=== PATIENT | female | born 1970 | race Caucasian/White ===

== ENCOUNTER 2016-03-28 14:47 | Emergency (ER) | payer OTHER ==
[~2016-03-28] VITALS: Ht 162.6 cm; Wt 115.0 kg
[~2016-03-28 14:47] MED LIST: ACET1CAP2 PO; ASPI81TA28 PO; CETI10TA10 PO; ERYOPO1 OP; LSN20 PO; METF750T PO; MULTTAB58 PO; OMEP20CA9 PO; POLYSOL4 OP; PRZ/40 PO
[2016-03-28 14:54] VITALS: Ht 162.6 cm; Wt 115.0 kg
[2016-03-28] MEDS ORDERED: ERYOPO1 OP (15:03)
[2016-03-28] MEDS ORDERED: PHEN1PAK PO (15:04)
[2016-03-28] MEDS ORDERED: VITACAP26 PO (15:04)
[2016-03-28] MEDS ORDERED: KETOROLAC TROMETHAMINE 30 MG/ML VIAL IV STA (15:15)
[2016-03-28] MEDS ORDERED: ONDANSETRON INJ 2 MG/ML 2 ML VIAL IV STA (15:15)
[2016-03-28] MEDS ORDERED: SODIUM CHLORIDE 0.9% 1000ML 1,000 ML IV STA (15:15)
[2016-03-28 15:57] LABS: BASO % 0.3 %; BASO ABS # 0.02 K/uL (0-0.2); COMPLETE YES; EOS % 2.3 %; HEMATOCRIT 36.6 % (37-47); IG% 0.2 %; LYMPH % 16.7 %; LYMPH ABS # 1.08 K/uL (1.2-3.4); MEAN CELL VOLUME 89.7 fL (80-100); MEAN CORPUSCULAR HEMOGLOBIN 30.6 pg (25-34); MEAN CORPUSCULAR HGB CONC 34.2 g/dl (32-36); MEAN PLATELET VOLUME 9.9 fL (7.4-10.4); MONO % 10.5 %; PLATELET COUNT 147 K/uL (130-400); RED BLOOD COUNT 4.08 M/uL (4.2-5.4); WHITE BLOOD COUNT 6.46 K/uL (4.8-10.8)
[2016-03-28 16:18] LABS: CALCIUM 9.3 mg/dl (8.5-10.1); CREATININE 0.8 mg/dl (0.60-1.20)
[2016-03-28 16:21] LABS: ALB/GLOB RATIO 0.9 (0.9-2)
[2016-03-28 17:23] LABS: LYME DISEASE AB IGG NEG (NEG); LYME DISEASE AB IGM NEG (NEG)
--- NOTE | 2016-03-28 17:39 | EMERGENCY ROOM VISIT NOTE ---
History First contact with patient: 15:01 Chief Complaint: ILLNESS Stated Complaint: ILLNESS History of Present Illness The patient is a 45 year old female who presents to the Emergency Room with complaints of nausea, vomiting, diarrhea and body aches. The patient reports that she has had flulike illness for the past 3 days. Her symptoms have been progressively worsening. She states that she thought that initially were improving, but they worsened after work last night. She reports that she has felt feverish for the past 3 days, but has not taken her temperature. She has been taking DayQuil without relief. She reports that she has had multiple episodes of vomiting over the past few days, but only one episode of diarrhea today. She denies any headache, posterior neck pain/stiffness, chest pain, cough or shortness of breath. She denies abdominal pain. She denies urinary symptoms. Review of Systems A complete 10-point Review of Systems was discussed with the patient, with pertinent positives and negatives listed in the History of Present Illness. All remaining Review of Systems questions can be considered negative unless otherwise specified. Past Medical/Surgical History Medical Problems: (1) Anxiety State Nos (2) Depressive Disorder Nec (3) Diverticulosis Colon (W/O Ment Of Hemorrhage) (4) Esophageal Reflux (5) Fem Stress Incontinence (6) Hypertension Nos (7) MORBID OBESITY Surgical Problems: (1) section (2) Hysterectomy Social History Smoking Status: Former Smoker Alcohol Use: occasionally Marital Status: Occupation Status: employed Current/Historical Medications Scheduled Aspirin (Aspirin Ec), 81 MG PO HS Cetirizine Hcl (Zyrtec), 10 MG PO DAILY Fluoxetine Hcl (Prozac), 40 MG PO DAILY Lisinopril (Lisinopril), 20 MG PO DAILY Metformin Hcl (Glucophage Er), 750 MG PO DAILY Multiple Vitamin (Multivitamin), 1 TABLET PO DAILY Omeprazole (Prilosec), 20 MG PO DAILY Polyethylene Glycol-Propylene (Systane), 1 DROPS OP QID Vitamins C & E (Vitamin C), 1 CAP PO DAILY Scheduled PRN Erythromycin (Erythromycin), 1 APPLN OP TID PRN for PRN Fsvdszqnhcudm-[id number]-Qxdqh (Daytime/Nite Time Cold/Fl), 1 DOSE PO Q12 PRN for COLD AND FLU Allergies Coded Allergies: Atorvastatin (Verified Allergy, Unknown, MUSCLE SPASM, 03/28/16) Statins (Unverified Allergy, Unknown, MUSCLE SPASM, 03/28/16) Physical Exam Vital Signs Date Time Temp Pulse Resp B/P Pulse Ox O2 Delivery O2 Flow Rate FiO2 03/28/16 17:58 37.2 87 18 114/65 96 03/28/16 16:55 87 125/72 97 Room Air 03/28/16 14:54 37.3 95 18 132/71 97 Room Air Physical Exam VITALS: Vitals are noted on the nurse's note and reviewed by myself. Vital signs stable. GENERAL: This is a 45-year-old female, in no acute distress, nondiaphoretic, well-developed well-nourished. SKIN: Capillary reflex less than 2 seconds. HEENT: Normocephalic. PERRLA. EOMI. Nares patent. Mucous membranes moist. Neck is supple without nuchal rigidity. HEART: Regular rate and rhythm without murmurs gallops or rubs. LUNGS: Clear to auscultation bilaterally without wheezes, rales or rhonchi. No retractions or accessory muscle use. ABDOMEN: Positive bowel sounds x 4. Soft, nontender to palpation. NEURO: Patient was alert and oriented to person place and time. Medical Decision & Procedures Laboratory Results 03/28/16 15:45 Red Blood Count 4.08, Mean Corpuscular Volume 89.7, Mean Corpuscular Hemoglobin 30.6, Mean Corpuscular Hemoglobin Concent 34.2, Mean Platelet Volume 9.9, Neutrophils (%) (Auto) 70.0, Lymphocytes (%) (Auto) 16.7, Monocytes (%) (Auto) 10.5, Eosinophils (%) (Auto) 2.3, Basophils (%) (Auto) 0.3, Neutrophils # (Auto ) 4.52, Lymphocytes # (Auto) 1.08, Monocytes # (Auto) 0.68, Eosinophils # (Auto ) 0.15, Basophils # (Auto) 0.02 03/28/16 15:45 Test 03/28/16 15:45 03/28/16 16:00 White Blood Count 6.46 K/uL (4.8-10.8) Red Blood Count 4.08 M/uL (4.2-5.4) Hemoglobin 12.5 g/dL (12.0-16.0) Hematocrit 36.6 % (37-47) Mean Corpuscular Volume 89.7 fL (80-100) Mean Corpuscular Hemoglobin 30.6 pg (25-34) Mean Corpuscular Hemoglobin Concent 34.2 g/dl (32-36) Platelet Count 147 K/uL (130-400) Mean Platelet Volume 9.9 fL (7.4-10.4) Neutrophils (%) (Auto) 70.0 % Lymphocytes (%) (Auto) 16.7 % Monocytes (%) (Auto) 10.5 % Eosinophils (%) (Auto) 2.3 % Basophils (%) (Auto) 0.3 % Neutrophils # (Auto) 4.52 K/uL (1.4-6.5) Lymphocytes # (Auto) 1.08 K/uL (1.2-3.4) Monocytes # (Auto) 0.68 K/uL (0.11-0.59) Eosinophils # (Auto) 0.15 K/uL (0-0.5) Basophils # (Auto) 0.02 K/uL (0-0.2) RDW Standard Deviation 43.8 fL (36.4-46.3) RDW Coefficient of Variation 13.3 % (11.5-14.5) Immature Granulocyte % (Auto) 0.2 % Immature Granulocyte # (Auto) 0.01 K/uL (0.00-0.02) Anion Gap 10.0 mmol/L (3-11) Est Creatinine Clear Calc Drug Dose 108.2 ml/min Estimated GFR () 101.8 Estimated GFR (Non- 87.8 BUN/Creatinine Ratio 14.0 (10-20) Calcium Level 9.3 mg/dl (8.5-10.1) Total Bilirubin 0.8 mg/dl (0.2-1) Aspartate Amino Transf (AST/SGOT) 65 U/L (15-37) Alanine Aminotransferase (ALT/SGPT) 128 U/L (12-78) Alkaline Phosphatase 113 U/L (45-117) Total Protein 7.9 gm/dl (6.4-8.2) Albumin 3.8 gm/dl (3.4-5.0) Globulin 4.1 gm/dl (2.5-4.0) Albumin/Globulin Ratio 0.9 (0.9-2) Lyme Disease IgG Antibody NEG (NEG) Lyme Disease IgM Antibody NEG (NEG) Monoscreen NEG (NEG) Influenza Type A Antigen Neg for Influ A (NEG) Influenza Type B Antigen Neg for Influ B (NEG) Medications Administered Medications (Trade) Dose Ordered Sig/Helen Route Start Time Stop Time Status Last Admin Dose Admin Sodium Chloride (Nss 1000ml) 1,000 ml @ 999 mls/hr Q1H1M STAT IV 03/28/16 15:15 03/28/16 16:15 DC 03/28/16 15:15 999 MLS/HR Ketorolac Tromethamine (Toradol Inj) 30 mg NOW STAT IV 03/28/16 15:15 03/28/16 15:20 DC 03/28/16 15:53 30 MG Ondansetron HCl (Zofran Inj) 4 mg NOW STAT IV 03/28/16 15:15 03/28/16 15:20 DC 03/28/16 15:53 4 MG Medical Decision Differential diagnosis includes influenza, pneumonia, mononucleosis, Lyme disease, meningitis, encephalitis, upper respiratory infection, viral syndrome, among others. The patient was evaluated as above. Labs were drawn and IV access was obtained. Imaging studies were performed and read by radiology as above. The patient was medicated with 1 L normal saline solution, 30 mg Toradol and 4 mg Zofran. The patient was reassessed multiple times during their stay in the emergency department and remained in stable condition. The patient is a 45-year-old female who presents today complaining of flulike illness. Labs revealed no leukocytosis, anemia or concerning electrolyte abnormalities. LFTs were mildly elevated and the clinical significance of this is unclear. The patient was informed and will follow-up with her primary care provider for recheck. Influenza, mono and Lyme testing were all negative. The patient likely has a viral illness. She was informed of all findings and conservative measures were discussed. She will return for any worsening symptoms. Based on the patient's presentation, lab results, and imaging studies, I feel the patient is stable for outpatient treatment. Discharge instructions were reviewed with the patient. The patient verbalized understanding of my assessment and treatment plan and was discharged home in good condition. Impression Primary Impression: Flu-like symptoms Departure Information Dispostion Home / Self-Care Condition GOOD Referrals Johnathon Caceres M.D. (PCP) Patient Instructions My [facility] Additional Instructions For pain control, you can use the following [id number] medicines (if >12 yo): - Regular strength (325mg/tab) Tylenol (acetaminophen) 2 tabs every 4-6 hours as needed. Do not exceed 12 tablets in a 24 hour period. Avoid taking more than 4 grams (4000 mg) of Tylenol per day. This includes any other sources of acetaminophen you may take on a regular basis. - Regular strength (200 mg/tab) Advil (ibuprofen) 1-2 tabs every 4-6 hours as needed. Do not exceed a dose of 3200 mg per day. REST and drink plenty of fluids for the next 2-3 days. Return to the emergency department with any new/worsening symptoms.
[2016-03-28 17:58] VITALS: BP 114/65; PULSE 87; TEMP 37.2; O2SAT 96
== END 2016-03-28 17:59 | disposition home or self-care (01) ==
LOC: EDBD 14:47 → C.EDD 14:48
DX: R11.2 Nausea with vomiting, unspecified (principal); R19.7 Diarrhea, unspecified; F41.9 Anxiety disorder, unspecified; F32.9 Major depressive disorder, single episode, unspecified; K21.9 Gastro-esophageal reflux disease without esophagitis; I10 Essential (primary) hypertension; E66.01 Morbid (severe) obesity due to excess calories; Z90.710 Acquired absence of both cervix and uterus; Z87.891 Personal history of nicotine dependence; Z79.82 Long term (current) use of aspirin; Z79.899 Other long term (current) drug therapy

== ENCOUNTER 2016-04-30 10:33 | Emergency (ER) | payer OTHER ==
[~2016-04-30 10:33] MED LIST changes: -ACET1CAP2 PO; +PHEN1PAK PO; +VITACAP26 PO
[2016-04-30 10:41] VITALS: TEMP 36.6; Ht 160 cm
[2016-04-30] MEDS ORDERED: OXYC-57 PO (11:40)
--- NOTE | 2016-04-30 11:42 | DIAGNOSTIC IMAGING REPORT ---
LEFT SHOULDER MIN 2 VIEWS ROUTINE CLINICAL HISTORY: Left shoulder pain status post trauma COMPARISON: None. DISCUSSION: No fractures or dislocations are visualized. IMPRESSION: No fractures or dislocations identified. Electronically signed by: Danilo Morales M.D. 04/30/2016 11:41 AM Dictated Date/Time: 04/30/2016 11:41 AM
--- NOTE | 2016-04-30 11:43 | DIAGNOSTIC IMAGING REPORT ---
LEFT ELBOW MIN 3 VIEWS ROUTINE CLINICAL HISTORY: fall, left elbow pain trauma. Pain. COMPARISON: None. DISCUSSION: The bones and joint spaces appear intact. There is no evidence of fracture, dislocation or bony disease. There is no evidence for soft tissue swelling. IMPRESSION: Negative study. Electronically signed by: Marlon Landon M.D. 04/30/2016 11:41 AM Dictated Date/Time: 04/30/2016 11:41 AM
--- NOTE | 2016-04-30 11:43 | DIAGNOSTIC IMAGING REPORT ---
LEFT FOOT MIN 3 VIEWS ROUTINE CLINICAL HISTORY: fall, left foot pain TRAUMA COMPARISON: None. DISCUSSION: No fractures or dislocations are visualized. There is a plantar calcaneal spur. There is dorsal soft tissue swelling. IMPRESSION: No acute fractures identified. Electronically signed by: Danilo Morales M.D. 04/30/2016 11:42 AM Dictated Date/Time: 04/30/2016 11:41 AM
--- NOTE | 2016-04-30 11:44 | DIAGNOSTIC IMAGING REPORT ---
LEFT FOREARM 2 VIEWS ROUTINE CLINICAL HISTORY: fall, left arm pain trauma. Pain. COMPARISON: None. DISCUSSION: Transverse fracture distal radius. Probable cortical fracture of ulnar styloid. Remainder the forearm is unremarkable. Mild soft tissue edema is present. IMPRESSION: Transverse fracture distal radius. Probable cortical fracture on the styloid. Moderate soft tissue edema. Electronically signed by: Marlon Landon M.D. 04/30/2016 11:43 AM Dictated Date/Time: 04/30/2016 11:42 AM
--- NOTE | 2016-04-30 11:51 | DIAGNOSTIC IMAGING REPORT ---
LEFT HAND MIN 3 VIEWS ROUTINE CLINICAL HISTORY: fall, left hand pain trauma COMPARISON: None. DISCUSSION: Transverse partially comminuted fracture distal radius. Fracture extends to the articular surface. Maximum bony distraction at the articular services 2 mm. There is a very slight dorsal angulation. There is no evidence of dislocation. Generalized soft tissue edema IMPRESSION: Transverse comminuted fracture distal radius with focal extension to the articular surface Electronically signed by: Marlon Landon M.D. 04/30/2016 11:50 AM Dictated Date/Time: 04/30/2016 11:48 AM
--- NOTE | 2016-04-30 11:52 | DIAGNOSTIC IMAGING REPORT ---
LEFT TIBIA/FIBULA 2 VIEWS ROUTINE CLINICAL HISTORY: fall, left leg pain trauma. Pain. COMPARISON: None. DISCUSSION: The bones and joint spaces appear intact. There is no evidence of fracture, dislocation or bony disease. There is no evidence for soft tissue swelling. IMPRESSION: Negative study. Electronically signed by: Marlon Landon M.D. 04/30/2016 11:51 AM Dictated Date/Time: 04/30/2016 11:51 AM
[2016-04-30] MEDS ORDERED: OXYCODONE HCL IR 5 MG TAB (IMMEDIATE RELEASE) PO STA (12:06)
[2016-04-30] MEDS ORDERED: OXYC1TAB3 PO (12:19)
--- NOTE | 2016-04-30 12:20 | EMERGENCY ROOM VISIT NOTE ---
History First contact with patient: 10:45 Chief Complaint: FALL Stated Complaint: ARM AND LEG PAIN History of Present Illness The patient is a 45 year old female who presents to the Emergency Room with complaints of fall. The patient states that she was on vacation in [place] and fell 3 days ago. She was seen in the hospital there and diagnosed with a distal ulna and distal radius fracture. She had been placed in a splint. She is taking Percocet. The patient states she has also had pain in the left leg, left shoulder and left arm. She has an appointment scheduled with orthopedics tomorrow. She rates her discomfort a 3/10. She denies any headache, nausea, vomiting, trouble focusing or blurry vision. Review of Systems A 10 system review of systems was completed with positives and pertinent negatives listed in the HPI. Past Medical/Surgical History Medical Problems: (1) Anxiety State Nos (2) Depressive Disorder Nec (3) Diverticulosis Colon (W/O Ment Of Hemorrhage) (4) Esophageal Reflux (5) Fem Stress Incontinence (6) Hypertension Nos (7) MORBID OBESITY Surgical Problems: (1) section (2) Hysterectomy Social History Smoking Status: Former Smoker Alcohol Use: occasionally Marital Status: Occupation Status: employed Current/Historical Medications Scheduled Aspirin (Aspirin Ec), 81 MG PO HS Cetirizine Hcl (Zyrtec), 10 MG PO DAILY Fluoxetine Hcl (Prozac), 40 MG PO DAILY Lisinopril (Lisinopril), 20 MG PO DAILY Metformin Hcl (Glucophage Er), 750 MG PO DAILY Multiple Vitamin (Multivitamin), 1 TABLET PO DAILY Omeprazole (Prilosec), 20 MG PO DAILY Polyethylene Glycol-Propylene (Systane), 1 DROPS OP QID Vitamins C & E (Vitamin C), 1 CAP PO DAILY Scheduled PRN Erythromycin (Erythromycin), 1 APPLN OP TID PRN for PRN Oxycodone Ir (Roxicodone Ir), 1-2 TAB PO Q4H PRN for Pain Oxycodone/Acetaminophen 5MG/325MG (Percocet 5MG/325MG), 2 TABLETS PO Q6H PRN for Pain Allergies Coded Allergies: Atorvastatin (Verified Allergy, Unknown, MUSCLE SPASM, 03/28/16) Statins (Unverified Allergy, Unknown, MUSCLE SPASM, 03/28/16) Physical Exam Vital Signs Date Time Temp Pulse Resp B/P Pulse Ox O2 Delivery O2 Flow Rate FiO2 04/30/16 12:44 66 20 138/76 98 04/30/16 12:19 66 20 138/76 98 Room Air 04/30/16 10:41 36.6 75 16 168/96 97 Room Air Physical Exam VITALS: Vitals are noted on the nurse's note and reviewed by myself. Vital signs stable. GENERAL: This is a 45-year-old female, in no acute distress, nondiaphoretic, well-developed well-nourished. SKIN: There is ecchymosis and edema to the left wrist. g of the skin. Capillary reflex less than 2 seconds. HEAD: Normocephalic atraumatic. EARS: External auditory canals clear, tympanic membranes pearly rangel without erythema or effusion bilaterally. No morel sign. No mastoid tenderness. EYES: Pupils equal round and reactive to light and accommodation. Conjunctivae without injection, sclerae without icterus. Extraocular movements intact. NOSE: Patent, turbinates without inflammation or discharge. No sinus tenderness. No septal hematoma or bleeding. FACE: No facial tenderness. Full range of motion of the jaw without tenderness. MOUTH: Mucous membranes moist. Pharynx without erythema or exudate. Uvula midline. Airway patent. Tongue does not deviate. NECK: Supple without nuchal rigidity. Cervical spine is nontender. Full range of motion of the neck without tenderness. No JVD. HEART: Regular rate and rhythm without murmurs gallops or rubs. LUNGS: Clear to auscultation bilaterally without wheezes, rales or rhonchi. No retractions or accessory muscle use. No chest tenderness. MUSCULOSKELETAL: There is ecchymosis, edema and tenderness to the left wrist. There is tenderness to the left shoulder and left elbow. There is tenderness to the left hand. Radial and ulnar pulses are 2+ in the left upper extremity. There is no tenderness or palpable cord or swelling to the left calf. There is swelling and tenderness over the left fourth and fifth metatarsals. NEURO: Patient was alert and oriented to person place and time. Normal Mini- Mental status exam. Normal sensation to light and sharp touch. Negative Romberg and pronator drift. Cerebellar function intact. No focal neurological deficits. Medical Decision & Procedures ER Provider Diagnostic Interpretation: [~ rep ct add3]] LEFT ELBOW MIN 3 VIEWS ROUTINE CLINICAL HISTORY: fall, left elbow pain trauma. Pain. COMPARISON: None. DISCUSSION: The bones and joint spaces appear intact. There is no evidence of fracture, dislocation or bony disease. There is no evidence for soft tissue swelling. IMPRESSION: Negative study. LEFT FOOT MIN 3 VIEWS ROUTINE CLINICAL HISTORY: fall, left foot pain TRAUMA COMPARISON: None. DISCUSSION: No fractures or dislocations are visualized. There is a plantar calcaneal spur. There is dorsal soft tissue swelling. IMPRESSION: No acute fractures identified. LEFT FOREARM 2 VIEWS ROUTINE CLINICAL HISTORY: fall, left arm pain trauma. Pain. COMPARISON: None. DISCUSSION: Transverse fracture distal radius. Probable cortical fracture of ulnar styloid. Remainder the forearm is unremarkable. Mild soft tissue edema is present. IMPRESSION: Transverse fracture distal radius. Probable cortical fracture on the styloid. Moderate soft tissue edema. LEFT HAND MIN 3 VIEWS ROUTINE CLINICAL HISTORY: fall, left hand pain trauma COMPARISON: None. DISCUSSION: Transverse partially comminuted fracture distal radius. Fracture extends to the articular surface. Maximum bony distraction at the articular services 2 mm. There is a very slight dorsal angulation. There is no evidence of dislocation. Generalized soft tissue edema IMPRESSION: Transverse comminuted fracture distal radius with focal extension to the articular surface LEFT SHOULDER MIN 2 VIEWS ROUTINE CLINICAL HISTORY: Left shoulder pain status post trauma COMPARISON: None. DISCUSSION: No fractures or dislocations are visualized. IMPRESSION: No fractures or dislocations identified. LEFT TIBIA/FIBULA 2 VIEWS ROUTINE CLINICAL HISTORY: fall, left leg pain trauma. Pain. COMPARISON: None. DISCUSSION: The bones and joint spaces appear intact. There is no evidence of fracture, dislocation or bony disease. There is no evidence for soft tissue swelling. IMPRESSION: Negative study. Medications Administered Medications (Trade) Dose Ordered Sig/Helen Route Start Time Stop Time Status Last Admin Dose Admin Oxycodone HCl (Roxicodone Immediate Rel Tab) 10 mg NOW STAT PO 04/30/16 12:06 04/30/16 12:09 DC 04/30/16 12:14 10 MG ED Course The patient was seen and examined. Previous visits were reviewed. The patient had a mechanical fall several days ago. X-rays were obtained as above. The patient was placed in a new splint, a sugar tong Ortho-Glass splint by the emergency department electronics technician apprentice and the position was satisfactory. Neurovascular status was intact. She was given a sling. She was placed in a postop shoe for the left foot. She was given 10 mg Percocet. She was given a prescription. She has an appointment with orthopedics tomorrow. She will return to the ER with any worsening symptoms. Medical Decision The differential diagnosis includes contusion, fracture, sprain, strain, among others [place] Drug Monitoring Program Search Results: patient reviewed within database, no issues identified Impression Primary Impression: Distal radius fracture, left Additional Impressions: Fall Multiple contusions Departure Information Dispostion Home / Self-Care Condition GOOD Prescriptions Oxycodone Ir (Roxicodone Ir) 5 Mg Tab 1-2 TAB PO Q4H Y for Pain, #36 TAB For Initial Treatment Prov: Emily Meyers PA-C 04/30/16 Referrals Johnathon Caceres M.D. (PCP) Benito Tovar M.D. Patient Instructions My [facility] Additional Instructions Follow up with orthopedics tomorrow as scheduled Return with worsening symptoms Oxy IR 1-2 tablets every 4-6 hrs as needed for worse pain. No driving or alcohol use with Oxy IR. Wear the splint until seen by orthopedics. Do not get the splint wet. Work Instructions Return To Work: 3 days Problem Qualifiers Primary Impression: Distal radius fracture, left Encounter type: initial encounter Fracture type: closed Additional Impressions: Fall Encounter type: initial encounter Qualified Codes: W19.XXXA - Unspecified fall, initial encounter
[2016-04-30 12:44] VITALS: BP 138/76; PULSE 66; O2SAT 98
== END 2016-04-30 12:45 | disposition home or self-care (01) ==
LOC: C.EDB 10:34 → EEVIPCON 10:34 → C.EDC 12:45
DX: S52.592A Other fractures of lower end of left radius, initial encounter for closed fracture (principal); T14.8 Other injury of unspecified body region; M79.605 Pain in left leg; M25.512 Pain in left shoulder; I10 Essential (primary) hypertension; F32.9 Major depressive disorder, single episode, unspecified; Z79.899 Other long term (current) drug therapy; Z79.82 Long term (current) use of aspirin; Z87.891 Personal history of nicotine dependence; W19.XXXA Unspecified fall, initial encounter; Y99.8 Other external cause status

== ENCOUNTER → 2016-05-08 | Outpatient (CLI) | payer OTHER ==
[~2016-05-08] MED LIST changes: +CLR10 PO; +DIET PILL PO; +KETO10TA PO; +OXYC-57 PO; +OXYC1TAB3 PO; -PHEN1PAK PO; +RANI150T3 PO
--- NOTE | 2016-05-08 10:51 | DIAGNOSTIC IMAGING REPORT ---
LEFT WRIST MIN 3 VIEWS ROUTINE CLINICAL HISTORY: LEFT WRIST PAIN fracture COMPARISON: 04/30/2016 DISCUSSION: Comminuted fracture distal radius is again noted. Distraction of the fracture component extending to the radial articular surface is somewhat increased. It has increased from 2 to 4 mm. Nondisplaced fracture ulnar styloid is noted. No evidence of dislocation. Mild soft tissue edema IMPRESSION: 1. Comminuted fracture distal radius with extension to the articular services. 2. Distraction at the level of the articular services has increased from the prior study from 2 to 4 mm. 3. Study is otherwise unchanged Electronically signed by: Marlon Landon M.D. 05/08/2016 10:49 AM Dictated Date/Time: 05/08/2016 10:47 AM
== END | disposition home or self-care (01) ==
LOC: C.RDSM 14:59
PROVIDERS: ATTEND Physical Medicine & Rehabilitation Sports Medicine
DX: S52.502A Unspecified fracture of the lower end of left radius, initial encounter for closed fracture (principal); X58.XXXA Exposure to other specified factors, initial encounter

== ENCOUNTER → 2016-05-19 | Outpatient (CLI) | payer OTHER | END | disposition home or self-care (01) | LOC: C.RDSM 13:58 | PROVIDERS: ATTEND Physical Medicine & Rehabilitation Sports Medicine | DX: S52.512A Displaced fracture of left radial styloid process, initial encounter for closed fracture (principal); X58.XXXA Exposure to other specified factors, initial encounter ==

== ENCOUNTER → 2016-05-19 | Outpatient (CLI) | payer OTHER ==
[2016-05-19 11:23] LABS: ALT/SGPT 151 U/L (12-78); AST/SGOT 69 U/L (15-37); BLOOD UREA NITROGEN 13 mg/dl (7-18); CALCIUM 10.1 mg/dl (8.5-10.1); CARBON DIOXIDE 25 mmol/L (21-32); CHLORIDE 101 mmol/L (98-107); CHOLESTEROL 291 mg/dl (0-200); CREATININE 0.57 mg/dl (0.60-1.20); GLUCOSE 118 mg/dl (70-99); POTASSIUM 4.2 mmol/L (3.5-5.1); SODIUM 136 mmol/L (136-145); TRIGLYCERIDES 355 mg/dl (0-150); VERY LOW DENSITY LIPOPROT CALC 71 mg/dl
[2016-05-19 11:27] LABS: ALKALINE PHOSPHATASE 118 U/L (45-117); CHOLESTEROL/HDL RATIO 8.3; HDL CHOLESTEROL 35 mg/dl; LDL CHOLESTEROL CALCULATED 185 mg/dl
[2016-05-19 11:44] LABS: ESTIMATED AVERAGE GLUCOSE 117 mg/dl; HA1C FLAG Normal (Normal)
== END | disposition home or self-care (01) ==
LOC: C.LAB 09:52
PROVIDERS: ATTEND Internal Medicine
DX: E78.5 Hyperlipidemia, unspecified (principal); I10 Essential (primary) hypertension; E66.01 Morbid (severe) obesity due to excess calories

== ENCOUNTER → 2016-05-26 | Outpatient (CLI) | payer OTHER | END | disposition home or self-care (01) | LOC: C.RDSM 14:54 | PROVIDERS: ATTEND Physical Medicine & Rehabilitation Sports Medicine | DX: Z09 Encounter for follow-up examination after completed treatment for conditions other than malignant neoplasm (principal) ==

== ENCOUNTER → 2016-06-09 | Outpatient (CLI) | payer OTHER ==
[~2016-06-09] MED LIST changes: +PHEN37.585 PO
== END | disposition home or self-care (01) ==
LOC: C.RDSM 12:22
PROVIDERS: ATTEND Physical Medicine & Rehabilitation Sports Medicine
DX: S52.512D Displaced fracture of left radial styloid process, subsequent encounter for closed fracture with routine healing (principal); X58.XXXD Exposure to other specified factors, subsequent encounter

== ENCOUNTER → 2016-06-23 | Outpatient (CLI) | payer OTHER | END | disposition home or self-care (01) | LOC: C.RDSM 08:00 | PROVIDERS: ATTEND Physical Medicine & Rehabilitation Sports Medicine | DX: S52.512D Displaced fracture of left radial styloid process, subsequent encounter for closed fracture with routine healing (principal); X58.XXXA Exposure to other specified factors, initial encounter ==

== ENCOUNTER → 2016-11-25 | Outpatient (CLI) | payer OTHER ==
[~2016-11-25] MED LIST changes: -OXYC1TAB3 PO; -PHEN37.585 PO
[2016-11-27 02:02] LABS: CHLAMYDIA TRACH RNA*** NOT DETECTED (NOT DETECTED); GC (NEIS GONORRHOEAE)RNA** NOT DETECTED (NOT DETECTED)
== END | disposition home or self-care (01) ==
LOC: C.LABSPEC 11:02
PROVIDERS: ATTEND Obstetrics & Gynecology
DX: Z11.3 Encounter for screening for infections with a predominantly sexual mode of transmission (principal)

== ENCOUNTER 2016-11-27 13:43 | Emergency (ER) | payer OTHER ==
[~2016-11-27 13:43] MED LIST changes: -CLR10 PO; -DIET PILL PO; -KETO10TA PO; -RANI150T3 PO
[2016-11-27] MEDS ORDERED: ONDANSETRON INJ 2 MG/ML 2 ML VIAL IV STA (13:59)
[2016-11-27] MEDS ORDERED: KETOROLAC TROMETHAMINE 30 MG/ML VIAL IV STA (13:59)
[2016-11-27] MEDS ORDERED: SODIUM CHLORIDE 0.9% 1000ML 1,000 ML IV STA (13:59)
[2016-11-27 14:16] LABS: BASO % 0.5 %; BASO ABS # 0.04 K/uL (0-0.2); COMPLETE YES; EOS % 1.2 %; IG% 0.1 %; LYMPH ABS # 2.05 K/uL (1.2-3.4); MEAN CELL VOLUME 89.5 fL (80-100); MEAN CORPUSCULAR HEMOGLOBIN 30.9 pg (25-34); MEAN CORPUSCULAR HGB CONC 34.5 g/dl (32-36); MEAN PLATELET VOLUME 10.4 fL (7.4-10.4); MONO % 4.9 %; NEUT % 68.3 %; PLATELET COUNT 262 K/uL (130-400); RED BLOOD COUNT 4.47 M/uL (4.2-5.4)
[2016-11-27 14:27] LABS: MANUAL MICROSCOPIC REQUIRED? NO; REVIEW REQ? NO; URINE APPEARANCE CLEAR (CLEAR); URINE BILIRUBIN NEG (NEG); URINE COLOR YELLOW; URINE EPITHELIAL CELL AUTO >30 /lpf (0-5); URINE NITRITE NEG (NEG); URINE SPECIFIC GRAVITY 1.013 (1.000-1.030); UROBILINOGEN NEG (NEG)
[2016-11-27 14:34] LABS: ALT/SGPT 33 U/L (12-78); BLOOD UREA NITROGEN 7 mg/dl (7-18); BUN/CREATININE RATIO 11.3 (10-20); CALCIUM 9.7 mg/dl (8.5-10.1); CARBON DIOXIDE 24 mmol/L (21-32); CHLORIDE 104 mmol/L (98-107); CREATININE 0.63 mg/dl (0.60-1.20); GLUCOSE 94 mg/dl (70-99); POTASSIUM 3.8 mmol/L (3.5-5.1); SODIUM 137 mmol/L (136-145)
[2016-11-27 14:37] LABS: ALKALINE PHOSPHATASE 81 U/L (45-117); AST/SGOT 22 U/L (15-37)
[2016-11-27] MEDS ORDERED: CLR10 PO (14:51)
[2016-11-27] MEDS ORDERED: RANI150T3 PO (14:51)
[2016-11-27] MEDS ORDERED: DIET PILL PO (14:53)
--- NOTE | 2016-11-27 15:27 | DIAGNOSTIC IMAGING REPORT ---
ABD/PELVIS WITHOUT FOR STONE CT DOSE: 1045.48 mGycm HISTORY: Flank pain EVALUATE FLANK PAIN/HEMATURIA TECHNIQUE: Multiaxial CT images of the abdomen and pelvis were performed without the use of intravenous and oral contrast according to the standard department stone protocol. A dose lowering technique was utilized adhering to the principles of ALARA. COMPARISON STUDY: 10/31/2014 FINDINGS: The lung bases are clear. The unenhanced liver, gallbladder, spleen, pancreas, and adrenal glands are unremarkable. No renal stones or hydronephrosis. No bowel wall thickening or obstruction. Examination of the pelvis of the presence of a 2.5 cm left ovarian cyst. This is diminished in prominence in the prior study. Several associated left ovarian calcification suggesting a potential dermoid. No evidence for right ovarian enlargement. Pelvic bowel pattern is nonobstructive. The appendix is considered normal. Bowel pattern again is nonobstructive. IMPRESSION: 1. No acute process of the urinary tracts. 2. Potential 2.5 cm left ovarian dermoid versus complex cyst. 3. Otherwise negative study abdomen and pelvis. The above report was generated using voice recognition software. It may contain grammatical, syntax or spelling errors. Electronically signed by: Marlon Landon M.D. 11/27/2016 3:25 PM Dictated Date/Time: 11/27/2016 3:21 PM
[2016-11-27 15:37] VITALS: BP 142/89; PULSE 80; TEMP 36.7; O2SAT 97
[2016-11-27] MEDS ORDERED: KETO10TA PO (15:53)
--- NOTE | 2016-11-27 22:45 | EMERGENCY ROOM VISIT NOTE ---
ED Visit Note First contact with patient: 13:50 Chief Complaint: Right flank and right lower abdominal pain History of Present Illness: Ms. Harris is a 45 year-old white female who ambulates into the ED complaining of right flank pain and right lower quadrant abdominal pain. Historically patient reports status post partial hysterectomy Patient reports a acute onset of right flank pain that started approximately 12 hours ago. Since that time the pain has been constant but has gradually decreased in intensity. The pain is currently described as stabbing and cramping. The pain is radiating around the abdomen and into the right lower quadrant. She rates her discomfort /10. He has not identified any aggravating or alleviating factors related to the pain. She reports she has not taken any medications for pain prior to arrival at the hospital. Associated with her pain she's been nauseated but she has not vomited. Patient denies fevers, chills, sweats, skin eruptions, skin color changes, upper respiratory tract symptoms, shortness of breath, chest pain, diarrhea, constipation, rectal bleeding, black/tarry stools, urinary symptoms, hematuria, vaginal bleeding, vaginal discharge. Review of Systems: As noted above in history of present illness. All body systems were reviewed and found to be negative as noted above. Past Medical History: Hypertension, bronchitis, unspecified ulcers, headaches, anxiety, depression, diverticulosis, esophageal reflex status post section 2 and hysterectomy. Current Medications: Zantac, Claritin, lisinopril, Zyrtec. Allergies to Medications: Statins. Social History: Patient is currently employed; she feels safe in her home environment; she denies tobacco use; she admits to alcohol use Physical Examination: Vital Signs: Date Time Temp Pulse Resp B/P (MAP) Pulse Ox O2 Delivery O2 Flow Rate FiO2 11/27/16 15:37 36.7 80 18 142/89 97 11/27/16 13:47 36.7 109 20 142/89 97 Room Air GENERAL: 45-year-old female in mild to moderate distress due to pain, nontoxic- appearing, afebrile and hemodynamically stable. NEUROLOGICAL: Awake, alert and oriented to person, place and time. Answering questions appropriately and following commands. Normal gait. Good hand eye coordination. SKIN: Warm, dry and pink. No soft tissue eruptions or trauma noted. HEENT: Atraumatic and normocephalic. PERRLA. Sclera white and conjunctiva pink. Oral cavity moist and pink. Pharynx is nonerythematous or edematous. Speech normal. No lymphadenopathy. Trachea midline. No jugular venous distention. BACK: No tenderness over the bony spine. Mild right sided CVA tenderness. THORAX: Lungs sounds are clear to auscultation and equal bilaterally with symmetrical chest wall. No wheezing, rales or rhonchi. No crepitus, tenderness , subcutaneous air or deformities noted. HEART: Regular rate and rhythm. No gallops, rubs or murmurs are appreciated. ABDOMEN: Soft with mild tenderness in the right lower quadrant superior to McBurney's point. Positive bowel sounds in all quadrants. No guarding, rigidity or organomegaly. EXTREMITIES: Moves all extremities well on command and with purpose. All distal neurovascular statuses are intact and equal bilaterally. ED Course: Patient is assessed as noted above. Patient's medication list was reviewed. Laboratory Testing: Test 11/27/16 13:50 11/27/16 14:05 Range/Units Urine Color YELLOW Urine Appearance CLEAR CLEAR Urine pH 6.0 4.5-7.5 Urine Specific [place] 1.013 1.000-1.030 Urine Protein NEG NEG Urine Glucose (UA) NEG NEG Urine Ketones NEG NEG Urine Occult Blood NEG NEG Urine Nitrite NEG NEG Urine Bilirubin NEG NEG Urine Urobilinogen NEG NEG Urine Leukocyte Esterase TRACE NEG Urine WBC (Auto) 1-5 0-5 /hpf Urine RBC (Auto) 0-4 0-4 /hpf Urine Hyaline Casts (Auto) 1-5 0-5 /lpf Urine Epithelial Cells (Auto) >30 0-5 /lpf Urine Bacteria (Auto) 1+ NEG White Blood Count 8.20 4.8-10.8 K/uL Red Blood Count 4.47 4.2-5.4 M/uL Hemoglobin 13.8 12.0-16.0 g/dL Hematocrit 40.0 37-47 % Mean Corpuscular Volume 89.5 80-100 fL Mean Corpuscular Hemoglobin 30.9 25-34 pg Mean Corpuscular Hemoglobin Concent 34.5 32-36 g/dl Platelet Count 262 130-400 K/uL Mean Platelet Volume 10.4 7.4-10.4 fL Neutrophils (%) (Auto) 68.3 % Lymphocytes (%) (Auto) 25.0 % Monocytes (%) (Auto) 4.9 % Eosinophils (%) (Auto) 1.2 % Basophils (%) (Auto) 0.5 % Neutrophils # (Auto) 5.60 1.4-6.5 K/uL Lymphocytes # (Auto) 2.05 1.2-3.4 K/uL Monocytes # (Auto) 0.40 0.11-0.59 K/uL Eosinophils # (Auto) 0.10 0-0.5 K/uL Basophils # (Auto) 0.04 0-0.2 K/uL RDW Standard Deviation 41.9 36.4-46.3 fL RDW Coefficient of Variation 12.9 11.5-14.5 % Immature Granulocyte % (Auto) 0.1 % Immature Granulocyte # (Auto) 0.01 0.00-0.02 K/uL Sodium Level 137 136-145 mmol/L Potassium Level 3.8 3.5-5.1 mmol/L Chloride Level 104 98-107 mmol/L Carbon Dioxide Level 24 21-32 mmol/L Anion Gap 9.0 3-11 mmol/L Blood Urea Nitrogen 7 7-18 mg/dl Creatinine 0.63 0.60-1.20 mg/dl Estimated GFR () 123.8 Estimated GFR (Non- 106.8 BUN/Creatinine Ratio 11.3 10-20 Random Glucose 94 70-99 mg/dl Calcium Level 9.7 8.5-10.1 mg/dl Total Bilirubin 0.5 0.2-1 mg/dl Direct Bilirubin 0.2 0-0.2 mg/dl Aspartate Amino Transf (AST/SGOT) 22 15-37 U/L Alanine Aminotransferase (ALT/SGPT) 33 12-78 U/L Alkaline Phosphatase 81 45-117 U/L Total Protein 7.7 6.4-8.2 gm/dl Albumin 4.0 3.4-5.0 gm/dl Lipase 213 73-393 U/L Noncontrast Abdominal/Pelvic CT: Was reviewed by myself and read by the radiologist showing no acute process of the urinary tracts, 2.5 cm left ovarian dermoid versus complex cyst. Patient was hydrated with normal saline and she received 4 mg of Zofran IV for nausea and 30 mg of Toradol IV for pain. Patient was reassessed multiple times during her stay in the emergency department. Patient's case was reviewed with Dr. Mayers; we agreed on diagnostic approach, treatment, disposition and plan. Patient was educated about today's findings and instructed on her treatment plan ; she verbalized understanding and agreement with this plan. Clinical Impression: Right flank pain. Right mid quadrant abdominal pain. Decision-Making: Initially my differential diagnosis I considered ureter calculus, pyelonephritis, constipation, hepatitis, pancreatitis, appendicitis, colitis and other causes. Disposition: Patient discharged home in stable condition; prior to departure she was reassessed and subjectively reported she was feeling better and rated her discomfort 3/10. Plan: Patient was encouraged to continue her current medications as prescribed. Patient was encouraged use 10 mg of Toradol every 6 hours as needed for pain and alternate with 650 mg of acetaminophen every 3 hours. Patient was encouraged to stay well-hydrated with increased clear fluids. Patient was encouraged to follow-up with her PCP for recheck in 2-3 days. Patient was encouraged return ED for worsening/uncontrolled pain, fevers, uncontrolled vomiting, bloody stools, urinary symptoms or any new/concerning symptoms. Patient was encouraged to follow-up with personal physician for recheck in 1-2 days. Patient was encouraged return the ED for worsening symptoms, fevers, or any new/ concerning symptoms.
== END 2016-11-27 15:38 | disposition home or self-care (01) ==
LOC: C.EDB 13:45 → C.EDC 15:38
DX: R10.31 Right lower quadrant pain (principal); R11.0 Nausea; I10 Essential (primary) hypertension; K21.9 Gastro-esophageal reflux disease without esophagitis; F32.9 Major depressive disorder, single episode, unspecified; F41.9 Anxiety disorder, unspecified; Z79.899 Other long term (current) drug therapy; Z90.710 Acquired absence of both cervix and uterus; Z87.09 Personal history of other diseases of the respiratory system; Z87.19 Personal history of other diseases of the digestive system

== ENCOUNTER 2016-12-25 02:45 | Emergency (ER) | payer OTHER ==
[~2016-12-25] VITALS: Ht 152.4 cm; Wt 111.0 kg
[~2016-12-25 02:45] MED LIST changes: -ASPI81TA28 PO; +CLR10 PO; +DIET PILL PO; -ERYOPO1 OP; -METF750T PO; -MULTTAB58 PO; -OMEP20CA9 PO; -OXYC-57 PO; -POLYSOL4 OP; -PRZ/40 PO; +RANI150T3 PO; -VITACAP26 PO
[2016-12-25 02:57] VITALS: TEMP 36.6; Ht 152.4 cm; Wt 111.0 kg
[2016-12-25] MEDS ORDERED: KETOROLAC TROMETHAMINE 30 MG/ML VIAL IV STA (03:25)
[2016-12-25 03:42] VITALS: O2SAT 97
[2016-12-25] MEDS ORDERED: PHEN37.585 PO (04:00)
[2016-12-25 04:08] LABS: BUN/CREATININE RATIO 17.6 (10-20); CALCIUM 9.1 mg/dl (8.5-10.1); CREATININE 0.87 mg/dl (0.60-1.20); MAGNESIUM 2.2 mg/dl (1.8-2.4); POTASSIUM 3.8 mmol/L (3.5-5.1)
[2016-12-25 04:19] LABS: THYROID STIMULATING HORMONE 1.76 uIu/ml (0.300-4.500)
[2016-12-25 04:44] LABS: LYME DISEASE AB IGG NEG (NEG); LYME DISEASE AB IGM NEG (NEG)
--- NOTE | 2016-12-25 04:52 | EMERGENCY ROOM VISIT NOTE ---
History First contact with patient: 03:03 Chief Complaint: WEAKNESS Stated Complaint: WEAK Nursing Triage Summary: muscle spasms that start in her toes and go up to her right side that have been going on for "months", but "tonight just couldn't take it" states they wake her out of a sleep History of Present Illness The patient is a 46 year old female who presents to the Emergency Room with complaints of muscle cramps and spasms that has been intermittent for months that is more severe tonight ranging in severity currently 5 out of 10. Nothing makes it better or worse. Patient denies chest pain, dyspnea, fever, chills, vomiting, diarrhea, back pain, urinary symptoms. Patient states occasionally she feels cold. Patient has been underneath more stress lately with her family. No excessive exercise. Possible tick bites. No known restless leg syndrome. No statin use. Review of Systems See HPI for pertinent positives & negatives. A total of 10 systems reviewed and were otherwise negative. Past Medical/Surgical History Medical Problems: (1) Anxiety State Nos (2) Depressive Disorder Nec (3) Diverticulosis Colon (W/O Ment Of Hemorrhage) (4) Esophageal Reflux (5) Fem Stress Incontinence (6) Hypertension Nos (7) MORBID OBESITY Surgical Problems: (1) section (2) Hysterectomy Social History Smoking Status: Never Smoker Smokeless Tobacco Use: No Alcohol Use: occasionally Marital Status: Occupation Status: employed Current/Historical Medications Scheduled Lisinopril (Lisinopril), 20 MG PO DAILY Loratadine (Claritin), 10 MG PO DAILY Phentermine Hcl (Adipex P), 37.5 MG PO DAILY Ranitidine Hcl (Zantac), 150 MG PO DAILY Physical Exam Vital Signs Date Time Temp Pulse Resp B/P (MAP) Pulse Ox O2 Delivery O2 Flow Rate FiO2 12/25/16 03:45 78 16 134/74 98 Room Air 12/25/16 03:42 97 Room Air 12/25/16 03:42 80 12/25/16 02:57 36.6 96 18 150/91 99 Room Air Physical Exam VITALS: Vitals are noted on the nurse's note and reviewed by myself. Vital signs stable. GENERAL: Pleasant female, in no acute distress, nondiaphoretic, well-developed well-nourished. SKIN: Capillary reflex less than 2 seconds. HEENT: Normocephalic. PERRLA. EOMI. Nares patent. Mucous membranes moist. Neck is supple without nuchal rigidity. HEART: Regular rate and rhythm without murmurs gallops or rubs. LUNGS: Clear to auscultation bilaterally without wheezes, rales or rhonchi. No retractions or accessory muscle use. ABDOMEN: Positive bowel sounds x 4. Normal tympanic percussion. Soft, nontender, without masses or organomegaly. Espitia sign negative. No guarding or rebound tenderness. MUSCULOSKELETAL: No gross musculoskeletal defects. No pedal edema. No calf tenderness. NEURO: Patient was alert and oriented to person place and time. Normal sensation to light and sharp touch. No focal neurological deficits. Medical Decision & Procedures Laboratory Results 12/25/16 03:30 Test 12/25/16 03:30 Anion Gap 9.0 mmol/L (3-11) Est Creatinine Clear Calc Drug Dose 89.5 ml/min Estimated GFR () 91.3 Estimated GFR (Non- 78.8 BUN/Creatinine Ratio 17.6 (10-20) Calcium Level 9.1 mg/dl (8.5-10.1) Magnesium Level 2.2 mg/dl (1.8-2.4) Total Bilirubin 0.5 mg/dl (0.2-1) Direct Bilirubin 0.1 mg/dl (0-0.2) Aspartate Amino Transf (AST/SGOT) 30 U/L (15-37) Alanine Aminotransferase (ALT/SGPT) 43 U/L (12-78) Alkaline Phosphatase 91 U/L (45-117) Total Creatine Kinase 109 U/L (26-192) Total Protein 8.1 gm/dl (6.4-8.2) Albumin 4.1 gm/dl (3.4-5.0) Thyroid Stimulating Hormone (TSH) 1.760 uIu/ml (0.300-4.500) Lyme Disease IgG Antibody NEG (NEG) Lyme Disease IgM Antibody NEG (NEG) Medications Administered Medications (Trade) Dose Ordered Sig/Helen Route Start Time Stop Time Status Last Admin Dose Admin Ketorolac Tromethamine (Toradol Inj) 30 mg NOW STAT IV 12/25/16 03:25 12/25/16 03:26 DC 12/25/16 03:38 30 MG ED Course Prior records/ancillary studies reviewed and summarized above. Nursing notes reviewed. The patient's history was concerning for muscle cramps. Differential diagnosis: Etiologies such as rhabdomyolysis, thyroid abnormality, lines, metabolic, infection, hypo/hyperglycemia, electrolyte abnormalities, toxicologic, neurologic, as well as others were entertained. Physical examination: As above. ER treatment provided: IV Lock By mouth fluids, Toradol On reassessment the patient felt better. Diagnostics interpretation by me: The labs revealed euthyroid. Normal CPK, negative Lyme Exam and history seem consistent with muscle cramps that could be related to the patient's increased stress. Patient was neurovascular and neurologically intact. She is well-appearing. Unremarkable workup as above. She is advised to rest, decrease stress and to follow-up family care in a few days or here in the ER sooner for severe pain, fevers, vomiting, worsening signs or symptoms or as needed. By the evaluation outlined above emergent etiologies such as infection, electrolyte abnormalities, toxologic, abnormalities blood glucose, metabolic, as well as others were deemed relatively unlikely. The pt informed about the findings as listed above. All questions were answered and pleased with the treatment. Return instructions were outlined and the patient was discharged in stable condition. Outpatient prescription management: Ativan Referral: The patient was referred back to primary care physician for follow-up in 2 to 3 days for a recheck of the current condition. Case reviewed by attending Medical Decision As above Medication Reconcilliation Current Medication List: was personally reviewed by me Blood Pressure Screening Patient's blood pressure: Normal blood pressure Impression Primary Impression: Muscle cramps at night Departure Information Dispostion Home / Self-Care Condition GOOD Referrals Johnathon Caceres M.D. (PCP) Patient Instructions My [facility] Additional Instructions Ativan 1 m tablet every 8 hours as needed for muscle tightness and anxiety. Normal cardiovascular medication. Ibuprofen(Motrin, Advil) may be used for fever or pain. Use 600mg every six hours as needed. Take with food. Avoid using more than 2400mg in a 24 hour period. Do not use 2400mg per day for more than three consecutive days without physician direction. Prolonged inappropriate use can lead to stomach upset or ulcers. (AND/OR) Acetaminophen(Tylenol) may be used for fever or pain. Use 1000mg every six hours as needed. Avoid using more than 3000mg in a 24 hour period. Rest and drink plenty of fluids as tolerated. Decrease stress. Continue current medications. Avoid strenuous activities and anything that worsens your pain. Resume normal activities once your symptoms resolve. Return to the ER immediately for worsening or persistent muscle cramps, abdominal pain, vomiting, fevers, chest pains, difficulty breathing, worsening of your condition, or as needed. Follow up with your primary physician in 2-3 days for a recheck of your current condition.
[2016-12-25] MEDS ORDERED: ATIVAN 1MG HOMEPACK PO ONE (05:00)
[2016-12-25 05:11] VITALS: BP 124/97; PULSE 91; O2SAT 99
[2016-12-25 07:41] LABS: BASO % 0.5 %; BASO ABS # 0.04 K/uL (0-0.2); COMPLETE YES; EOS % 1.9 %; HEMATOCRIT 41.3 % (37-47); IG% 0.1 %; LYMPH % 18.9 %; LYMPH ABS # 1.61 K/uL (1.2-3.4); MEAN CORPUSCULAR HEMOGLOBIN 31.3 pg (25-34); MEAN CORPUSCULAR HGB CONC 34.4 g/dl (32-36); MEAN PLATELET VOLUME 11.2 fL (7.4-10.4); MONO % 5.8 %; NEUT % 72.8 %; PLATELET COUNT 296 K/uL (130-400); RED BLOOD COUNT 4.54 M/uL (4.2-5.4); WHITE BLOOD COUNT 8.51 K/uL (4.8-10.8)
== END 2016-12-25 05:12 | disposition home or self-care (01) ==
LOC: C.EDB 02:45
DX: R25.2 Cramp and spasm (principal); I10 Essential (primary) hypertension; F32.9 Major depressive disorder, single episode, unspecified; F41.9 Anxiety disorder, unspecified; Z79.899 Other long term (current) drug therapy; E66.01 Morbid (severe) obesity due to excess calories

== ENCOUNTER → 2017-03-13 | Outpatient (CLI) | payer OTHER ==
[~2017-03-13] MED LIST changes: -CETI10TA10 PO; -DIET PILL PO; +PHEN37.585 PO
[2017-03-13 17:16] LABS: HEP C IGG 13 YRS+OLDER_RFLX NEG (NEG)
[2017-03-18 01:38] LABS: HERPES SIMPLEX AB IGG-1 < 0.90 INDEX (< 0.90); HERPES SIMPLEX AB IGG-2 < 0.90 INDEX (< 0.90)
--- NOTE | 2017-04-17 11:56 | CODING QUERY NO DIAGNOSIS ---
: 1970 TREATMENT RENDERED WITHOUT A DIAGNOSIS To promote full compliance with coding requirements relating to patient care, physician participation is requested in all cases of technology lead uncertainty. Please assist us with providing a diagnosis/symptom for the test(s) below: A diagnosis/symptom was not documented on your Order. A valid diagnosis/symptom is required to bill all insurances. Please remember that we are unable to code a diagnosis of rule out, probable, possible, questionable, or suspected. Tests that require a diagnosis: DOS: 03/13/17 * HERPES SIMPLEX IGG ANTIBODY DIAGNOSIS: * HERPES SIMPLEX IGM ANTIBODY DIAGNOSIS: * RAPID PLASMA REAGIN DIAGNOSIS: * HEPATITIS B SURFACE ANTIGEN DIAGNOSIS: * HEPATITIS C IGG DIAGNOSIS: * HIV ANTIGEN DIAGNOSIS: Provider Signature: Date: Thank you Kari Aceves Health Information Management Once completed, please kindly fax back to [phone] For questions please call [phone]
== END | disposition home or self-care (01) ==
LOC: C.LAB 14:55
PROVIDERS: ATTEND Physician Assistant
DX: Z20.2 Contact with and (suspected) exposure to infections with a predominantly sexual mode of transmission (principal)

== ENCOUNTER → 2017-03-13 | Outpatient (CLI) | payer OTHER | END | disposition home or self-care (01) | LOC: C.LABSPEC 14:12 | PROVIDERS: ATTEND Physician Assistant | DX: N76.6 Ulceration of vulva (principal) ==

== ENCOUNTER → 2017-06-17 | Outpatient (CLI) | payer OTHER | END | disposition home or self-care (01) | LOC: C.PAPS 17:43 | PROVIDERS: ATTEND Obstetrics & Gynecology | DX: Z01.419 Encounter for gynecological examination (general) (routine) without abnormal findings (principal) ==